=== PATIENT | female | born 1955 | race Caucasian/White ===

== ENCOUNTER → 2018-04-08 | Outpatient (CLI) | payer BC ==
[~2018-04-08] MED LIST: ALEVE 220MG220 MG PO; AMRIX15 MG PO; ASPI; ASPI-200; CHLOR TRIMETON 44 MG PO; DETROL LA4 MG PO; FLEXERIL 1010 MG/TAB PO; NAPROXEN 3375 MG/TAB PO; SIMVASTATIN5 MG PO; TOPAMAX25 MG PO; TYLENOL 500MG500 MG PO; [UNRECOGNIZED DRUG - OTHER] PO
== END ==
LOC: MC.RAD 14:00
DX: Z12.31 Encounter for screening mammogram for malignant neoplasm of breast (principal); N63.10 Unspecified lump in the right breast, unspecified quadrant

== ENCOUNTER → 2018-04-11 | Outpatient (CLI) | payer BC | LOC: MC.RAD 13:16 | DX: N63.10 Unspecified lump in the right breast, unspecified quadrant (principal) | CPT/HCPCS: G0279 ==

== ENCOUNTER 2018-06-14 19:27 | Emergency (ER) | payer BC ==
[~2018-06-14] VITALS: Ht 160 cm; Wt 64.5 kg
[2018-06-14 19:34] VITALS: BP 112/59; PULSE 85; TEMP 97.7
[2018-06-14] MEDS ORDERED: 00186-0372-20 IH (20:03)
[2018-06-14] MEDS ORDERED: NORCO 325 MG-51 TAB PO (20:04)
== END 2018-06-14 20:18 | disposition home or self-care (01) ==
LOC: COL.ER 19:27
DX: K40.90 Unilateral inguinal hernia, without obstruction or gangrene, not specified as recurrent (principal); J44.9 Chronic obstructive pulmonary disease, unspecified; F17.210 Nicotine dependence, cigarettes, uncomplicated; Z79.899 Other long term (current) drug therapy

== ENCOUNTER → 2018-10-10 | Outpatient (CLI) | payer BC ==
[~2018-10-10] MED LIST changes: +00186-0372-20 IH; +NORCO 325 MG-51 TAB PO
== END ==
LOC: MC.RAD 12:48
DX: N63.10 Unspecified lump in the right breast, unspecified quadrant (principal)
CPT/HCPCS: G0279

== ENCOUNTER → 2020-07-19 | Outpatient (CLI) | payer BC | LOC: MC.RAD 13:00 | DX: Z12.31 Encounter for screening mammogram for malignant neoplasm of breast (principal) ==

== ENCOUNTER → 2021-01-05 | Outpatient (CLI) | payer MEDICARE | LOC: COL.RAD 08:12 | DX: Q07.00 Arnold-Chiari syndrome without spina bifida or hydrocephalus (principal) ==

== ENCOUNTER 2021-02-14 13:30 | Outpatient (RCR) | payer MEDICARE | END 2021-04-28 | LOC: MKS.ESL.PT | DX: M47.812 Spondylosis without myelopathy or radiculopathy, cervical region (principal); M19.011 Primary osteoarthritis, right shoulder ==